=== PATIENT | female | born 2000 | race Hispanic/Latino ===

== ENCOUNTER 2021-07-05 19:50 | Emergency (ER) | payer OTHER ==
[~2021-07-05] VITALS: Ht 149.9 cm; Wt 70.3 kg
== END 2021-07-05 20:22 | disposition home or self-care (01) ==
LOC: ER 20:11
DX: R21 Rash and other nonspecific skin eruption (principal)
CPT/HCPCS: 99282

== ENCOUNTER 2021-12-23 06:30 | Emergency (ER) | payer OTHER ==
[~2021-12-23] VITALS: Ht 149.9 cm; Wt 70.3 kg
[2021-12-23] MEDS ORDERED: MEDROL4 MG PO (06:40)
[2021-12-23] MEDS ORDERED: ONDANSETRON HCL 4 MG ORAL DISINTEGRATING TAB PO ONE ×2 (06:45)
[2021-12-23] MEDS ORDERED: DEXAMETHASONE SOD PHOS 10 MG/1 ML VIAL IM ONE (06:45)
[2021-12-23] MEDS ORDERED: KETOROLAC TROMETHAMINE 30 MG/ML VIAL IV ONE (10:45)
== END 2021-12-23 07:30 | disposition home or self-care (01) ==
LOC: ER 06:56
DX: R21 Rash and other nonspecific skin eruption (principal); R60.9 Edema, unspecified
CPT/HCPCS: 99283; J1100; Q0162

== ENCOUNTER 2022-01-26 15:12 | Emergency (ER) | payer OTHER ==
[~2022-01-26] VITALS: Ht 149.9 cm; Wt 70.3 kg
[~2022-01-26 15:12] MED LIST: MEDROL4 MG PO
[2022-01-26] MEDS ORDERED: BROMFED DM COU118 ML PO (17:10)
[2022-01-26] MEDS ORDERED: CEFDINIR300 MG PO (17:10)
[2022-01-26 17:22] VITALS: BP 110/56
== END 2022-01-26 17:23 | disposition home or self-care (01) ==
LOC: ER 15:25
DX: R05.9 Cough, unspecified (principal); J02.9 Acute pharyngitis, unspecified; J06.9 Acute upper respiratory infection, unspecified
CPT/HCPCS: 83518; 87070; 99282

== ENCOUNTER 2022-08-26 16:39 | Emergency (ER) | payer OTHER ==
[~2022-08-26] VITALS: Ht 149.9 cm; Wt 70.3 kg
[~2022-08-26 16:39] MED LIST changes: +BROMFED DM COU118 ML PO; +CEFDINIR300 MG PO
== END 2022-08-26 17:20 | disposition home or self-care (01) ==
LOC: ER 16:53
DX: S60.041A Contusion of right ring finger without damage to nail, initial encounter (principal); W49.04XA Ring or other jewelry causing external constriction, initial encounter; Y92.89 Other specified places as the place of occurrence of the external cause
CPT/HCPCS: 99283